=== PATIENT | female | born 2000 | race American Indian/Alaskan Native ===

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

== ENCOUNTER 2018-11-18 15:54 | Emergency (ER) | payer MEDICAID, OTHER ==
[2018-11-18 15:54] VITALS: BMI 21.9
[2018-11-18 16:02] VITALS: BP 113/77; PULSE 65; RESP 16; TEMP 98.1; O2SAT 100
--- NOTE | 2018-11-18 16:44 | C.PDOC ---
History Of Present Illness Patient is a 18 year old female with no pmhx who presents today with complaints of RLQ abdominal pain. Patient reports she awoke this morning with cramping pain isolated to RLQ w/ no radiation, episodic-lasting 20 minutes at 20 minute intervals, worse when lying flat. Reports never having had this pain before, no hx of appendicitis. Patient reports last BM 2 days ago, FDLMP 4, sexually active with condom use. Patient denies nausea/vomiting, post prandial association, fever like symptoms, urinary changes, vaginal discharge/bleeding. Time Seen by Provider: 11/18/18 16:21 Chief Complaint (Nursing): Abdominal Pain History Per: Patient History/Exam Limitations: no limitations Onset/Duration Of Symptoms: Hrs Current Symptoms Are (Timing): Still Present Severity: Moderate Pain Scale Rating Of: 6 Location Of Pain/Discomfort: RLQ Radiation Of Pain To:: None Quality Of Discomfort: Cramping Associated Symptoms: denies: Fever, Nausea, Vomiting, Loss Of Appetite, Urinary Symptoms Exacerbating Factors: Supine Last Bowel Movement: Other (2 days ago) Recent travel outside of the [place]: No Past Medical History Vital Signs: Last Vital Signs Temp 98.1 F 11/18/18 15:59 Pulse 65 11/18/18 15:59 Resp 16 11/18/18 15:59 BP 113/77 11/18/18 15:59 Pulse Ox 100 11/18/18 15:59 - Medical History PMH: Denies: Depression, Diabetes, HTN, Chronic Kidney Disease - [facility] Procedures DELIVERY OF PRODUCTS OF CONCEPTION, EXTERNAL APPROACH (07/25/17) REPAIR PERINEUM MUSCLE, OPEN APPROACH (07/25/17) Family History: States: No Known Family Hx - Social History Hx Tobacco Use: No Hx Alcohol Use: No Hx Substance Use: Yes (marijuana) - Immunization History Hx Tetanus Toxoid Vaccination: No Hx Influenza Vaccination: No Hx Pneumococcal Vaccination: No Review Of Systems Constitutional: Negative for: Fever, Chills Respiratory: Negative for: Cough Gastrointestinal: Positive for: Abdominal Pain (RLQ). Negative for: Nausea, Vomiting, Diarrhea, Melena, Hematochezia Genitourinary: Negative for: Dysuria, Vaginal Discharge, Vaginal Bleeding, Pelvic Pain, Rash Musculoskeletal: Negative for: Back Pain Physical Exam - Physical Exam Appears: Non-toxic, No Acute Distress Skin: Normal Color, Warm, Dry Head: Atraumatic, Normacephalic Eye(s): bilateral: Normal Inspection, PERRL, EOMI Oral Mucosa: Moist Neck: Normal Cardiovascular: Rhythm Regular, No Murmur Respiratory: Normal Breath Sounds Gastrointestinal/Abdominal: Bowel Sounds, Soft, Tenderness (+ McBurney's, + obturator's sign), No Mass, No Distention, No Guarding, No Rebound Back: No CVA Tenderness Extremity: No Pedal Edema, No Calf Tenderness Neurological/Psych: Oriented x3 ED Course And Treatment - Laboratory Results Result Diagrams: 11/18/18 17:48 11/18/18 17:48 Lab Interpretation: Normal Urine POC: Negative O2 Sat by Pulse Oximetry: 100 Pulse Ox Interpretation: Normal Progress Note: Pt reports no abdominal pain since ED arrival Reevaluation Time: 18:21 Reassessment Condition: Improved Against Medical Advice - AMA Patient Left Against Medical Advice: The patient declines further evaluation and wishes to leave the Emergency Department. This action is against my medical advice. This decision was made with informed refusal. The patient was told that further evaluation would be beneficial. Explanation of the reasons why were discussed. The risks of leaving were explained to the patient and include, but are not li mited to, worsening of known or currently unknown conditions, permanent disability and from undiagnosed or untreated conditions. The patient has the capacity to make this informed decision and understands my explanation of the current medical problem and risks of leaving. The patient voluntarily accepts these risks and signed an AMA form documenting our conversation. The patient was given the opportunity to ask questions and reconsider. The patient was encouraged to return to the Emergency Department at any time for further care. Medical Decision Making Medical Decision Makin18 year old female presenting with RLQ abdominal pain CBC CMP UA Ucx HCG POC/HCG negative No leukocytosis Obstructive series ordered. Patient deciding to sign out AMA after having been explained risks of leaving prior to full evaluation with full understanding. Disposition - Disposition Disposition: AGAINST MEDICAL ADVICE Disposition Time: 18:47 Condition: FAIR Forms: [facility] ([place]er) - POA Present On Arrival: None - Clinical Impression Clinical Impression: Abdominal pain
[2018-11-18 17:58] LABS: BASO % 0.4 % (0.0-2.0); EOS % 0.5 % (0.0-4.0); HEMOGLOBIN 14.7 g/dL (11.0-16.0); LYMPH # 2.6 K/uL (1.0-4.3); LYMPH % 50.1 % (20.0-40.0); MEAN CELL VOLUME 93.8 fL (81.0-99.0); MEAN CORPUSCULAR HEMOGLOBIN 31.2 pg (27.0-31.0); MEAN CORPUSCULAR HGB CONC 33.3 g/dL (33.0-37.0); MONO # 0.4 K/uL (0.0-0.8); MONO % 7.8 % (0.0-10.0); NEUT # 2.2 K/uL (1.8-7.0); NEUT % 41.2 % (50.0-75.0); NRBC % 0.1 % (0.0-2.0); RBC 4.71 Mil/uL (3.80-5.20); RED CELL DISTRIBUTION WIDTH 12.9 % (11.5-14.5); WHITE BLOOD COUNT 5.3 K/uL (4.8-10.8)
[2018-11-18 18:10] LABS: ALB/GLOB RATIO 1.4 (1.0-2.1); ALBUMIN 4.2 g/dL (3.5-5.0); ALT/SGPT 16 U/L (9-52); AST/SGOT 26 U/L (14-36); BLOOD UREA NITROGEN 9 mg/dL (7-17); CALCIUM 9.1 mg/dl (8.6-10.4); GFR NON-AFRICAN AMERICAN > 60
[2018-11-18 18:11] LABS: SQUAMOUS EPITHIAL 19 /hpf (0-5); URINE BACTERIA RARE (<OCC); URINE BILIRUBIN NEGATIVE (NEGATIVE); URINE BLOOD NEGATIVE (NEGATIVE); URINE CLARITY Hazy (Clear); URINE COLOR Yellow (YELLOW); URINE GLUCOSE (UA) NORMAL (Normal); URINE LEUKOCYTE ESTERASE NEG Leu/uL (Negative); URINE PROTEIN 1+ mg/dL (NEGATIVE)
[2018-11-18 18:16] LABS: HCG,QUALITATIVE URINE NEGATIVE (NEGATIVE)
== END 2018-11-18 18:47 | disposition left against medical advice (07) ==
LOC: C.ER 15:54
DX: R10.31 Right lower quadrant pain (principal)